=== PATIENT | male | born 1960 | race Caucasian/White ===

== ENCOUNTER → 2019-04-26 | Outpatient (CLI) | payer BC ==
[~2019-04-26] MED LIST: CIALIS20 MG PO; LISINOPRIL-HCT1 EACH PO; SUBOXONE 8 MG-1 EAC3 SUBLING
== END ==
LOC: SJCVCIMAG 07:29
DX: Z01.810 Encounter for preprocedural cardiovascular examination (principal); I25.10 Atherosclerotic heart disease of native coronary artery without angina pectoris; Z87.891 Personal history of nicotine dependence

== ENCOUNTER → 2019-05-07 | Outpatient (CLI) | payer BC ==
[~2019-05-07] VITALS: Ht 170.2 cm; Wt 98.4 kg
[2019-05-07 09:52] VITALS: BP 135/80
--- NOTE | 2019-05-07 17:01 | EKG ---
[facility] [place] [address] ELECTROCARDIOGRAM REPORT Name: KAY PRIEST Room #: REG [facility].#: [id number] Admission: 05/07/19 Attend Phys: Zak Bower Discharge: Date of : 56 Report #: [id number] THIS REPORT FOR: cc: Jayden Thornton Gregory DO Couchonnal,Jean Claude Jefferson MD ~ THIS REPORT FOR: //name// [facility] Test Date: 2019-05-07 Test Time: 09:53:42 Pat Name: KAY PRIEST Department: Room: Gender: Gold Nib Grinder: Razia STAHL : 1960 Requested By: Zak Bower Order Number: [id number] MD: Jean Claude Jones Measurements Intervals [place] Rate: 76 P: -19 ME: 169 QRS: -26 QRSD: 92 T: -3 QT: 355 QTc: 400 Interpretive Statements Sinus rhythm Abnormal R-wave progression, late transition Inferior infarct, old No previous ECG available for comparison Electronically Signed On 05-07-2019 17:00:06 M48/M60 TANK DRIVER by Jean Claude Jones [email or web address] <ELECTRONICALLY SIGNED> By: Jean Claude Jones MD 05/07/19 1700 [id number] [id number] Jean Claude Jones MD /EPI
--- NOTE | 2019-05-10 14:02 | CATHLAB ---
[facility] [place] [address] INVASIVE PROCEDURE REPORT Name: KAY PRIEST Room #: REG [facility]#: [id number] Admission: 05/07/19 Attend Phys: Zak Bower Discharge: Date of : 56 Report #: [id number] THIS REPORT FOR: cc: Jayden Thornton Gregory DO Lammoglia, Francisco J. MD ~ ADDENDUM APPROVED REPORT Study performed: 05/07/2019 10:59:29 Patient Details Patient Status: Out-Patient Room #: The patient is a 58 year-old male Event Personnel Zak Bower Electoral Officer, Jalyn Lundberg RTR, WEBSPHERE DEVELOPER Monitor, Rakesh Kidd RN, Sravan Pickering RTR Scrub Procedures Performed Art Access - R femoral artery* Left Heart Cath w/or w/o Coronaries [id number] [facility] [id number] Initial Mod Sed Same Phys/QHP 5y [id number] Hemostasis with Manual pressure, supervision of conscious sedation Indication Positive stress test Procedure Narrative The Right Groin^ was infiltrated with 1% Lidocaine subcutaneous anesthesia. A PINNACLE 4FR Sheath #[id number] sheath was inserted into the RFA^. Coronary angiography was performed using coronary diagnostic catheters. The right coronary system was accessed and visualized with a JR4 catheter. The left coronary system was accessed and visualized with a JL5 catheter. The left ventricle was accessed and visualized with a angled pigtail catheter. Left ventricular/Aortic Valve gradient assessed via catheter pullback. Hemostasis was obtained with manual pressure following sheath removal without any complications. The patient tolerated the procedure well and there were no complications associated with the procedure. There was no hematoma. Intraoperative Conscious Sedation Sedation start time: 11:32 Case end Time: 12:02 [facility] [address] [address] INVASIVE PROCEDURE REPORT Name: KAY PRIEST Room #: [facility] [id number] Admission: 05/07/19 Attend Phys: Zak Plascencia Discharge: Date of : 56 Report #: [id number] Versed 2 mg Fluoro Time: 3.42 minutes Dose: DAP 4838.30 cGycm2 642 mGy Contrast Type and Amount: Omnipaque 45 ml Coronary Angiography The patient's coronary anatomy is left dominant. Diagnostic Cath Left Main Normal origin short in length bifurcates left anterior descending left circumflex free of high-grade disease LAD Moderate caliber type II vessel evidence of significant epicardial calcifications on fluoroscopy which courses in the anterior interventricular sulcus giving rise to septal and diagonal branches. No high-grade obstructive lesions are noted. Is mild luminal irregularities noted in the proximal mid LAD Diagonal 1 Small caliber vessel without high-grade lesions noted Diagonal 2 Small caliber vessel without high-grade lesions noted Circumflex Moderate to large caliber dominant courses in the drill ventricular groove giving rise to an early marginal branch. This is small in caliber and free of high-grade disease. The vessel then continues posterior ligament right to several posterior wall branch and a posterior descending artery without high-grade lesion L PDA Small-caliber vessel without high-grade lesions noted Right Coronary Small nondominant vessel without significant stenosis Ramus Significant caliber vessel arising and course in a short distance without high-grade disease or luminal irregularities Left Ventriculography Left Ventriculography was not performed. Hemodynamics The aortic pressure is 143/78 mmHg with a mean of 103 mmHg. The left ventricular pressure is 153/10 mmHg with a mean of mmHg. The left ventricular end diastolic pressure is 24 mmHg. Conclusion 1. Mild coronary artery disease consisting of luminal irregularities and mild plaquing in the proximal left anterior descending coronary artery 2. Normal hemodynamics [facility] [address] [address] INVASIVE PROCEDURE REPORT Name: KAY PRIEST Room #: REG Ad[facility]#: [id number] Admission: 05/07/19 Attend Phys: Zak Plascencia Discharge: Date of : 56 Report #: [id number] Recommendations Cardiac Risk Reduction Program <ELECTRONICALLY SIGNED> By: Zak Bower MD 05/10/19 1401 1401 1401 Zak Bower MD /INF
== END | disposition home or self-care (01) ==
LOC: CATH 09:19
DX: R94.39 Abnormal result of other cardiovascular function study (principal); I25.10 Atherosclerotic heart disease of native coronary artery without angina pectoris; I10 Essential (primary) hypertension; E78.5 Hyperlipidemia, unspecified; Z98.890 Other specified postprocedural states; Z79.899 Other long term (current) drug therapy; Z87.891 Personal history of nicotine dependence

== ENCOUNTER → 2020-08-28 | Outpatient (CLI) | payer BC ==
[~2020-08-28] VITALS: Ht 170.2 cm; Wt 97.5 kg
[~2020-08-28] MED LIST changes: +CRESTOR40 MG PO; +LISINOPRIL10 MG PO; +MULTAQ 400 MG400 MG PO; +PRADAXA150 MG PO; +TOPROL XL25 MG PO
[2020-08-28 10:14] VITALS: BP 99/65
[2020-08-28 10:27] LABS: CALCIUM 9.1 mg/dL (8.5-10.1); CREATININE 1.1 mg/dL (0.7-1.3); POTASSIUM 4.6 mmol/L (3.5-5.1)
[2020-08-28 10:33] LABS: ALBUMIN 3.7 g/dL (3.4-5.0); TOTAL BILIRUBIN 0.7 mg/dL (0.2-1.0); TOTAL PROTEIN 6.8 g/dL (6.4-8.2)
== END | disposition home or self-care (01) ==
LOC: CATH 09:18
PROVIDERS: ATTEND Internal Medicine
DX: I48.0 Paroxysmal atrial fibrillation (principal); I10 Essential (primary) hypertension; I25.10 Atherosclerotic heart disease of native coronary artery without angina pectoris; Z98.890 Other specified postprocedural states; Z79.899 Other long term (current) drug therapy; E78.5 Hyperlipidemia, unspecified; Z79.01 Long term (current) use of anticoagulants